=== PATIENT | female | born 1960 | race Caucasian/White ===

== ENCOUNTER 2018-02-03 21:45 | Emergency (ER) | payer MEDICAID, SELFPAY ==
[2018-02-03 21:46] VITALS: BP 133/96; BP 146/90; PULSE 85; PULSE 87; RESP 17; RESP 18; TEMP 36.4; O2SAT 96; BMI 32.2
--- NOTE | 2018-02-03 21:49 | EKG12_ITS ---
Test Reason : CP Blood Pressure : / mmHG Vent. Rate : 087 BPM Atrial Rate : 087 BPM P-R Int : 178 ms QRS Dur : 098 ms QT Int : 406 ms P-R-T Axes : 013 021 031 degrees QTc Int : 488 ms Normal sinus rhythm Prolonged QT Abnormal ECG Confirmed by ESPERANZA RUBIO ([id number]), food expeditor FELIPE TURK ([id number]) on 02/08/2018 4:07:48 PM Referred By: EVERETT
[2018-02-03 22:47] LABS: Bacteria 0 SEEN /hpf (None Seen); Mucous, Urine 0 SEEN /hpf (<or=2+)
--- NOTE | 2018-02-03 22:48 | ED.DCSUM_ITS ---
- ER Visit Summary Date of Service: 02/03/18 Chief Complaint: Chest pain, headache, abdominal pain, back pain History of Present Illness: The patient is a 57 F who has had multiple symptoms including all the above. Symptoms started yesterday. She describes a headache that is diffuse and throbbing. She has pain in her abdomen that radiates up into her chest. She denies feeling short of breath. She then developed nausea and diarrhea today. She has been trying Advil and Imodium without relief. She has never had any abdominal surgeries in the past. She has a history of HIV and has been compliant with her antiviral medication. Physical Examination: Vital signs reviewed. HEENT exam unremarkable. Heart is regular rate and rhythm without murmurs. Lungs are clear to auscultation. Abdomen is soft with upper abdomen tenderness to palpation. extremities reveal no edema. Skin exam normal. Neurologic exam normal. Test Results: Laboratory studies show potassium 3.3, alkaline phosphatase of 118 , ALT 99 and AST 76. Urinalysis negative. Emergency Department Course and Treatment: Patient was treated with normal saline and Zofran. She was also given Bentyl. Upon reevaluation she feels better. I feel that her elevation of liver enzymes are likely due to her antiretrovirals. She states that they have been mildly elevated in the past as well. She feels much better. I will give her Bentyl and Zofran that she can take at home. This is likely a viral illness. I have very low suspicion for gallbladder pathology. She will need to follow-up with her PCP Treatment Plan: [] Disposition: Discharge Impression: Acute viral illness This note was generated with [employer] dictation software. It may contain incorrect words, spelling, and punctuation that were not noted in review of the chart prior to signing ED Disposition - Plan for ED Patient: Chief Complaint: Chest Pain Referrals: Venkata Rudolph MD [Primary Care Provider] -
[2018-02-03 22:49] LABS: Color, Urine Yellow (Yellow); Glucose, Dipstick Normal (Normal); Ketone-Dipstick Negative (Negative); Leukocyte Esterase-Dipstick 500 /ul (Negative); Nitrite-Dipstick Negative (Negative); Occult Blood-Urine 50 /ul (Negative); Protein-Dipstick 30 mg/dl (Negative); Specific Gravity, Urine 1.025 (1.002-1.030); Urine Bilirubin Dipstick Negative (Negative); Urine Clarity Cloudy (Clear); Urine Urobilinogen Normal (Normal)
[2018-02-03 22:52] LABS: Absolute Lymphocyte Count 1.26 X10^3/ul (0.83-4.51); Absolute Neutrophil Count 4.9 X10^3/uL (2.0-7.7); Basophil# 0.01 X10^3/uL; Basophil% 0.1 % (0-1); Eosinophil# 0.13 X10^3/uL; Eosinophils% 1.9 % (0-5); Hematocrit 44.5 % (37-47); Lymphocyte # 1.26 X10^3/ul (4.0); Lymphocyte % 18.6 % (19-41); Mean Corp Hgb Conc 33.7 g/gl (32-36); Mean Corpuscular Hgb 29.9 pg (27.0-32.0); Mean Corpuscular Volume 88.6 fL (81-99); Mean Platelet Vol. 10.6 fl (6.2-12.0); Monocyte# 0.42 X10^3/uL; Monocyte% 6.2 % (0-10); Neutrophil # 4.93 X10^3/uL (2.7-7.7); Neutrophil % 73.1 % (47-70); POSITIVE COUNT NO; POSITIVE DIFFERENTIAL NO; POSITIVE MORPHOLOGY NO; Platelet Count 223 K/mm3 (150-450); RBC Distribution Width CV 13.5 % (11.6-14.6); RBC Distribution Width SD 43.3 fl (35.1-43.9); Red Blood Count 5.02 M/mm3 (4.2-5.4); White Blood Count 6.8 K/mm3 (4.4-11.0)
[2018-02-03] MEDS: 0.9% Normal Saline 1,000 ML 1000 ML IV (22:52)
[2018-02-03] MEDS: Ondansetron 4 MG/2 ML Vial IV (22:53)
[2018-02-03] MEDS: Dicyclomine 20 MG/2 ML Vial IM (22:53)
[2018-02-03 23:00] LABS: Amorphous Sediment 3+; Red Blood Cells-Urine 0-5 SEEN /hpf (0-5); Squamous Epithelial Cells - UA 0-5 SEEN /hpf (5-10); White Blood Cells 0-5 SEEN /hpf (0-5)
[2018-02-03 23:05] LABS: ALB/GLOB Ratio 0.8 RATIO (0.9-2.4); AST(SGOT) 76 U/L (15-37); Alanine Aminotransfer ALT/SGPT 99 U/L (13-56); Albumin, Serum 3.6 g/dL (3.2-5.0); Alkaline Phosphatase 118 U/L (45-117); Anion Gap 7 (5-15); BUN 18 mg/dL (7-18); BUN/Creat Ratio 18.2 RATIO (10-20); Calcium,Total 8.7 mg/dL (8.5-10.1); Chloride 103 mmol/L (98-107); Creatinine, Serum 0.99 mg/dL (0.55-1.02); EST Glomerular Filtration Rate 62 mL/min (>60); Est Glom Filt Rate - Afr Amer 75 mL/min (>60); Estimated Creatinine Clearance 64.77 ml/min; Globulin 4.7 g/dL (2.2-4.2); Glucose 119 mg/dL (74-106); Lipase 98 U/L (73-393); Potassium 3.3 mmol/L (3.5-5.1); Protein, Total 8.3 g/dL (6.4-8.2); Sodium Level 136 mmol/L (136-145)
[2018-02-03 23:18] VITALS: PULSE 80; RESP 16; O2SAT 96
--- NOTE | 2018-02-03 23:21 | ED.DEP ---
ED Disposition - Plan for ED Patient: Disposition: Home or Assisted Living Chief Complaint: Chest Pain Instructions: ED Viral Syndrome Prescriptions: Ondansetron [Zofran Odt] 4 mg PO Q8H PRN PRN #10 tab PRN Reason: Nausea Dicyclomine HCl [Bentyl] 20 mg PO TIDAC #20 cap Referrals: Venkata Rudolph MD [Primary Care Provider] -
[2018-02-03 23:30] VITALS: PULSE 77; RESP 14; O2SAT 95
== END 2018-02-03 23:31 | disposition home or self-care (01) ==
PROVIDERS: Emergency Provider Emergency Medicine; Family Provider Family Medicine; PCP Family Medicine
DX: B34.9 Viral infection, unspecified (principal); I10 Essential (primary) hypertension; Z72.0 Tobacco use
CPT/HCPCS: 80053; 81001; 83690; 85025; 93005; 99285; J7030; A4216; J2405

== ENCOUNTER → 2018-03-22 06:55 | Outpatient (CLI) | payer MEDICAID, SELFPAY ==
[2018-03-22 07:51] LABS: Hematocrit 40.1 % (37-47); Hemoglobin 13.3 g/dl (12.0-15.0); Mean Corp Hgb Conc 33.2 g/gl (32-36); Mean Corpuscular Hgb 29.7 pg (27.0-32.0); Mean Corpuscular Volume 89.5 fL (81-99); Mean Platelet Vol. 10.3 fl (6.2-12.0); Platelet Count 252 K/mm3 (150-450); RBC Distribution Width CV 13.3 % (11.6-14.6); RBC Distribution Width SD 42.9 fl (35.1-43.9); Red Blood Count 4.48 M/mm3 (4.2-5.4); White Blood Count 6.6 K/mm3 (4.4-11.0)
[2018-03-22 07:54] LABS: Scan Indicated on CBC? Y/N NO
[2018-03-22 08:30] LABS: AST(SGOT) 34 U/L (15-37); Alanine Aminotransfer ALT/SGPT 52 U/L (13-56); Albumin, Serum 3.1 g/dL (3.2-5.0); Alkaline Phosphatase 107 U/L (45-117); Anion Gap 7 (5-15); BUN 16 mg/dL (7-18); BUN/Creat Ratio 19.1 RATIO (10-20); Bilirubin, Direct 0.11 mg/dL (0.00-0.30); Calcium,Total 8.3 mg/dL (8.5-10.1); Chloride 107 mmol/L (98-107); Cholesterol 142 mg/dL (200); Creatinine, Serum 0.84 mg/dL (0.55-1.02); EST Glomerular Filtration Rate 75 mL/min (>60); Est Glom Filt Rate - Afr Amer 91 mL/min (>60); Glucose 110 mg/dL (74-106); High Density Lipoprotein 42 mg/dL; Potassium 3.5 mmol/L (3.5-5.1); Protein, Total 8.1 g/dL (6.4-8.2); Sodium Level 139 mmol/L (136-145); Triglycerides 106 mg/dL; Very Low Density Lipoprotein 21 mg/dL (5-40)
[2018-03-28 20:08] LABS: Absolute CD4 Helper 796 /uL (359-1519); Basophils (Absolute) 0 x10E3/uL (0.0-0.2); Eosinophils 2 % (Not Estab.); Eosinophils (Absolute) 0.1 x10E3/uL (0.0-0.4); Hematocrit 41.3 % (34.0-46.6); Hemoglobin 13.3 g/dL (11.1-15.9); Lymphs 28 % (Not Estab.); Lymphs (Absolute) 1.8 x10E3/uL (0.7-3.1); MCH 29.8 pg (26.6-33.0); MCHC 32.2 g/dL (31.5-35.7); MCV 92 fL (79-97); Monocytes 8 % (Not Estab.); Monocytes (Absolute) 0.5 x10E3/uL (0.1-0.9); Neutrophils 62 % (Not Estab.); Percent % CD4 Pos. Lymph. 44.2 % (30.8-58.5); Platelets 263 x10E3/uL (150-379); RBC Count 4.47 x10E6/uL (3.77-5.28); RDW 13.8 % (12.3-15.4); WBC Count 6.4 x10E3/uL (3.4-10.8)
[2018-03-29 14:51] LABS: HIV-1 RNA by PCR, Quant. < 20 copies/mL (.)
[2018-03-30 20:08] LABS: QNTFERON TB Ag Minus Nil Value < 0 IU/mL (.); QNTFERON TB Ag Value 0.07 IU/mL (.); QNTFERON TB Mitogen Value > 10.00 IU/mL (.); QNTFERON TB Nil Value 0.08 IU/mL (.)
[2018-03-31 13:14] LABS: QNTIFERON TB Gold Negative (Negative)
== END ==
PROVIDERS: Family Provider Family Medicine; PCP Family Medicine; Visit Provider Internal Medicine Infectious Disease
DX: B20 Human immunodeficiency virus [HIV] disease (principal)
CPT/HCPCS: 36415; 80048; 80061; 80076; 85027; 86361; 86480; 87536

== ENCOUNTER 2018-07-27 08:34 | Emergency (ER) | payer MEDICAID, SELFPAY ==
[2018-07-27 08:35] VITALS: BP 134/83; PULSE 87; RESP 18; TEMP 36.9; O2SAT 99; BMI 38.0
--- NOTE | 2018-07-27 08:48 | ED.VISSUMM ---
- ER Visit Summary Date of Service: 07/27/18 Chief Complaint: Back pain and abdominal cramping History of Present Illness: The patient is a 58 F past medical history of hypertension and HIV positive. Patient was treated in urgent care today and sent to the ER. She states on Wednesday she started having right paravertebral mid to lower back pain. She denies any dysuria. She denies any fever. Yesterday and today she developed some epigastric abdominal cramping with diarrhea. She denies any melena. Mild nausea no vomiting. She is never had any abdominal surgeries. Physical Examination: Well-appearing middle-age female. Vital signs are stable afebrile. HEENT exam unremarkable. Neck nontender. Lungs there to auscultation bilaterally. Heart regular rate and rhythm no murmur. Abdomen is soft. Mild epigastric tenderness. No rebound. No guarding. No distention. No rigidity. No Soriano sign. No McBurney's point or right lower quadrant tenderness. No signs of trauma. Positive bowel sounds. She is moving all 4 extremities. They are neurovascularly intact. 5 out of 5 motor strength. Dorsi and plantar flexion intact. Back she has some right paravertebral soft tissue tenderness consistent with muscle spasm. There is no specific CVA tenderness. The left side is unremarkable. Neurologically she is awake and alert without any focal motor deficits. Test Results: CBC shows a white count of 11.3. Normal H&H. Electrolytes unremarkable. Normal creatinine and gap. Liver and lipase are unremarkable. UA is unremarkable. No signs of infection or kidney stone. Emergency Department Course and Treatment: Patient will be treated with IV Toradol. She is driving herself home so it to be careful what we give her medication chase. Clinically the back exam is consistent with paravertebral muscle spasm. Repeat exam patient is doing well at 0943 AM. Abdomen is benign. Treatment Plan: Patient appears to have paravertebral muscle spasm. She replaced on several days of p.o. Valium. Motrin for pain and inflammation. The diarrhea is most likely from a viral illness. Disposition: Discharge Impression: Musculoskeletal back pain secondary to muscle spasm Diarrhea secondary to viral illness This note was generated with raksulation software. It may contain incorrect words, spelling, and punctuation that were not noted in review of the chart prior to signing ED Disposition - Plan for ED Patient: Chief Complaint: Flank Pain Referrals: Venkata Rudolph MD [Primary Care Provider] -
--- NOTE | 2018-07-27 08:51 | ED.DCSUM_ITS ---
- ER Visit Summary Date of Service: 07/27/18 Chief Complaint: Back pain and abdominal cramping History of Present Illness: The patient is a 58 F past medical history of hypertension and HIV positive. Patient was treated in urgent care today and sent to the ER. She states on Wednesday she started having right paravertebral mid to lower back pain. She denies any dysuria. She denies any fever. Yesterday and today she developed some epigastric abdominal cramping with diarrhea. She denies any melena. Mild nausea no vomiting. She is never had any abdominal surgeries. Physical Examination: Well-appearing middle-age female. Vital signs are stable afebrile. HEENT exam unremarkable. Neck nontender. Lungs there to auscultation bilaterally. Heart regular rate and rhythm no murmur. Abdomen is soft. Mild epigastric tenderness. No rebound. No guarding. No distention. No rigidity. No Soriano sign. No McBurney's point or right lower quadrant tenderness. No signs of trauma. Positive bowel sounds. She is moving all 4 extremities. They are neurovascularly intact. 5 out of 5 motor strength. Dorsi and plantar flexion intact. Back she has some right paravertebral soft tissue tenderness consistent with muscle spasm. There is no specific CVA tenderness. The left side is unremarkable. Neurologically she is awake and alert without any focal motor deficits. Test Results: CBC shows a white count of 11.3. Normal H&H. Electrolytes unremarkable. Normal creatinine and gap. Liver and lipase are unremarkable. UA is unremarkable. No signs of infection or kidney stone. Emergency Department Course and Treatment: Patient will be treated with IV Toradol. She is driving herself home so it to be careful what we give her medication chase. Clinically the back exam is consistent with paravertebral mus julio spasm. Repeat exam patient is doing well at 0943 AM. Abdomen is benign. Treatment Plan: Patient appears to have paravertebral muscle spasm. She replaced on several days of p.o. Valium. Motrin for pain and inflammation. The diarrhea is most likely from a viral illness. Disposition: Discharge Impression: Musculoskeletal back pain secondary to muscle spasm Diarrhea secondary to viral illness This note was generated with [employer] dictation software. It may contain incorrect words, spelling, and punctuation that were not noted in review of the chart prior to signing ED Disposition - Plan for ED Patient: Chief Complaint: Flank Pain Referrals: Venkata Ruodlph MD [Primary Care Provider] -
[2018-07-27] MEDS: Ketorolac 30 MG/ML Syringe IV (08:54)
[2018-07-27 08:59] LABS: Absolute Neutrophil Count 9.3 X10^3/uL (2.0-7.7); Basophil# 0.04 X10^3/uL; Basophil% 0.4 % (0-1); Eosinophil# 0.17 X10^3/uL; Eosinophils% 1.5 % (0-5); Hematocrit 45.4 % (37-47); Hemoglobin 15.2 g/dl (12.0-15.0); Lymphocyte % 10.6 % (19-41); Mean Corp Hgb Conc 33.5 g/gl (32-36); Mean Corpuscular Hgb 30.2 pg (27.0-32.0); Mean Corpuscular Volume 90.1 fL (81-99); Mean Platelet Vol. 10.5 fl (6.2-12.0); Monocyte# 0.61 X10^3/uL; Monocyte% 5.4 % (0-10); Neutrophil # 9.25 X10^3/uL (2.7-7.7); POSITIVE COUNT NO; POSITIVE DIFFERENTIAL NO; POSITIVE MORPHOLOGY NO; Platelet Count 214 K/mm3 (150-450); RBC Distribution Width SD 42.5 fl (35.1-43.9); Red Blood Count 5.04 M/mm3 (4.2-5.4); White Blood Count 11.3 K/mm3 (4.4-11.0)
[2018-07-27 09:15] LABS: AST(SGOT) 32 U/L (15-37); Alanine Aminotransfer ALT/SGPT 62 U/L (13-56); Albumin, Serum 3.5 g/dL (3.2-5.0); Alkaline Phosphatase 111 U/L (45-117); Anion Gap 7 (5-15); BUN 24 mg/dL (7-18); BUN/Creat Ratio 25.3 RATIO (10-20); Bilirubin, Direct 0.19 mg/dL (0.00-0.30); Calcium,Total 8.5 mg/dL (8.5-10.1); Chloride 106 mmol/L (98-107); Creatinine, Serum 0.95 mg/dL (0.55-1.02); EST Glomerular Filtration Rate 65 mL/min (>60); Est Glom Filt Rate - Afr Amer 78 mL/min (>60); Globulin 5.2 g/dL (2.2-4.2); Glucose 126 mg/dL (74-106); Lipase 114 U/L (73-393); Potassium 3.9 mmol/L (3.5-5.1); Protein, Total 8.7 g/dL (6.4-8.2); Sodium Level 138 mmol/L (136-145)
[2018-07-27 09:17] LABS: Mucous, Urine 0 SEEN /hpf (<or=2+); White Blood Cells 0 SEEN /hpf (0-5)
[2018-07-27 09:18] LABS: Color, Urine Yellow (Yellow); Glucose, Dipstick Normal (Normal); Ketone-Dipstick Negative (Negative); Leukocyte Esterase-Dipstick Negative /ul (Negative); Nitrite-Dipstick Negative (Negative); Occult Blood-Urine 10 /ul (Negative); Protein-Dipstick 15 mg/dl (Negative); Specific Gravity, Urine 1.025 (1.002-1.030); Urine Bilirubin Dipstick Negative (Negative); Urine Clarity Sl. Cloudy (Clear); Urine Urobilinogen Normal (Normal)
[2018-07-27 09:26] LABS: Bacteria 1+ /hpf (None Seen); Red Blood Cells-Urine 0-5 SEEN /hpf (0-5); Squamous Epithelial Cells - UA 0-5 SEEN /hpf (5-10)
--- NOTE | 2018-07-27 09:50 | ED.DEP ---
ED Disposition - Plan for ED Patient: Disposition: Home or Assisted Living Chief Complaint: Flank Pain Instructions: ED Spasm Back No Trauma Prescriptions: Diazepam [Valium] 10 mg PO BID PRN PRN #10 tab PRN Reason: back spasms Referrals: Venkata Rudolph MD [Primary Care Provider] - 3-5 Days if not improving Additional Instructions: Motrin for pain. Valium for muscle spasms. Do not drive while using the Valium. Hot showers, warm bath and massage. Follow-up with if not improving.
[2018-07-27 10:01] VITALS: PULSE 81; RESP 17; O2SAT 94
== END 2018-07-27 10:04 | disposition home or self-care (01) ==
PROVIDERS: Emergency Provider Emergency Medicine; Family Provider Family Medicine; PCP Family Medicine
DX: M54.5 Low back pain (principal); M62.830 Muscle spasm of back; R19.7 Diarrhea, unspecified; B34.9 Viral infection, unspecified; R10.13 Epigastric pain; I10 Essential (primary) hypertension; B20 Human immunodeficiency virus [HIV] disease; Z79.899 Other long term (current) drug therapy
CPT/HCPCS: 80048; 80076; 81001; 83690; 85025; 96374; 99284; A4216

== ENCOUNTER → 2018-09-19 12:07 | Outpatient (CLI) | payer MEDICAID, SELFPAY ==
[2018-09-19 13:13] LABS: Hematocrit 43.6 % (37-47); Hemoglobin 14.6 g/dl (12.0-15.0); Mean Corp Hgb Conc 33.5 g/gl (32-36); Mean Corpuscular Hgb 30.1 pg (27.0-32.0); Mean Corpuscular Volume 89.9 fL (81-99); Platelet Count 215 K/mm3 (150-450); RBC Distribution Width CV 13.4 % (11.6-14.6); RBC Distribution Width SD 43.4 fl (35.1-43.9); Red Blood Count 4.85 M/mm3 (4.2-5.4); White Blood Count 6.5 K/mm3 (4.4-11.0)
[2018-09-19 13:15] LABS: Scan Indicated on CBC? Y/N NO
[2018-09-19 13:26] LABS: AST(SGOT) 84 U/L (15-37); Alanine Aminotransfer ALT/SGPT 93 U/L (13-56); Albumin, Serum 3.7 g/dL (3.2-5.0); Alkaline Phosphatase 104 U/L (45-117); Anion Gap 7 (5-15); BUN 21 mg/dL (7-18); BUN/Creat Ratio 25.8 RATIO (10-20); Bilirubin, Direct 0.16 mg/dL (0.00-0.30); Calcium,Total 9.3 mg/dL (8.5-10.1); Chloride 108 mmol/L (98-107); Creatinine, Serum 0.81 mg/dL (0.55-1.02); EST Glomerular Filtration Rate 77 mL/min (>60); Est Glom Filt Rate - Afr Amer 93 mL/min (>60); Globulin 4.8 g/dL (2.2-4.2); Glucose 92 mg/dL (74-106); Potassium 3.8 mmol/L (3.5-5.1); Protein, Total 8.5 g/dL (6.4-8.2); Sodium Level 140 mmol/L (136-145)
[2018-09-20 14:07] LABS: Absolute CD4 Helper 635 /uL (359-1519); Basophils (Absolute) 0 x10E3/uL (0.0-0.2); Eosinophils 3 % (Not Estab.); Eosinophils (Absolute) 0.2 x10E3/uL (0.0-0.4); Hematocrit 40.9 % (34.0-46.6); Hemoglobin 14.7 g/dL (11.1-15.9); Immature Granulocytes 0 % (Not Estab.); Lymphs 27 % (Not Estab.); Lymphs (Absolute) 1.8 x10E3/uL (0.7-3.1); MCH 29.9 pg (26.6-33.0); MCHC 35.9 g/dL (31.5-35.7); MCV 83 fL (79-97); Monocytes 8 % (Not Estab.); Monocytes (Absolute) 0.6 x10E3/uL (0.1-0.9); Neutrophils 61 % (Not Estab.); Neutrophils (Absolute) 4.1 x10E3/uL (1.4-7.0); Percent % CD4 Pos. Lymph. 35.3 % (30.8-58.5); Platelets 233 x10E3/uL (150-379); RBC Count 4.91 x10E6/uL (3.77-5.28); RDW 13.7 % (12.3-15.4); WBC Count 6.6 x10E3/uL (3.4-10.8)
[2018-09-21 09:24] LABS: Immature Granulocytes Absolute 0 x10E3/uL (0.0-0.1)
[2018-09-21 13:18] LABS: HIV-1 RNA by PCR, Quant. 20 copies/mL (.); LOG10 HIV-1 RNA 1.301 (.)
== END ==
PROVIDERS: Family Provider Family Medicine; PCP Family Medicine; Referring Provider Internal Medicine Infectious Disease; Visit Provider Internal Medicine Infectious Disease
DX: B20 Human immunodeficiency virus [HIV] disease (principal)
CPT/HCPCS: 36415; 80048; 80076; 85027; 86361; 87536

== ENCOUNTER 2018-10-12 13:04 | Emergency (ER) | payer MEDICAID, SELFPAY ==
[2018-10-12 13:05] VITALS: BP 136/84; BP 161/107; PULSE 86; RESP 18; TEMP 36.3; O2SAT 96; BMI 38.5
--- NOTE | 2018-10-12 13:33 | RAD_ITS ---
STUDY: X-RAY - UNILATERAL RIBS ( RIGHT ) WITH CHEST REASON FOR EXAM: Female, 58 years old. Anterior right rib pain following a fall. TECHNIQUE - RIBS: 4 view(s) of the ribs. TECHNIQUE - CHEST: COMPARISON: None. FINDINGS - RIBS: Normal visualized ribs without a demonstrated fracture. FINDINGS - CHEST: The lungs are clear and expanded. Scattered calcified granulomas. There is no demonstrated pleural abnormality. Normal size heart. Normal mediastinum and erendira. Normal visualized pulmonary arteries. There is atherosclerotic tortuosity of the aortic arch and descending thoracic aorta. There are diffuse degenerative changes of the visualized thoracic spine. Normal visualized ribs, clavicles, and shoulders. There is no demonstrated abnormality of the visualized soft tissue structures of the upper abdomen. RAD/Ribs Uni Min 3V w/PA Chest IMPRESSION: RIBS: Normal x-ray examination of the ribs. CHEST: Normal x-ray examination of the chest. Electronically Signed: Rodney Luna MD at 14:22 EST Tel [phone], Service support ,
--- NOTE | 2018-10-12 15:31 | ED.VISSUMM ---
- ER Visit Summary Date of Service: 10/12/18 Chief Complaint: Fall History of Present Illness: The patient is a 58 F who presents after a fall 5 days ago. Patient states she tripped and fell forward and landed on concrete. Patient thinks her right arm was under her when she fell. Patient complains of pain over the right lower ribs. Patient states the pain is worse with movement and deep breathing. Patient denies any head injury or loss of consciousness. Patient denies any paresthesias or weakness. Physical Examination: Vital signs are stable. Patient is afebrile. Patient is in no acute distress. Heart was regular rate and rhythm. Lungs are clear and equal bilaterally. There is adequate respiratory effort. There is tenderness over the right lower chest wall. There is also some mild right upper quadrant tenderness. There is no rebound or guarding noted. Bowel sounds are normal. Abdomen is soft. Cranial nerves II through XII are intact. There are no focal motor or sensory deficits noted. The remaining physical exam is within normal limits. Test Results: X-rays of the right ribs were obtained. There is no acute fracture. There is no pneumothorax. Emergency Department Course and Treatment: Patient was instructed to take Tylenol or ibuprofen as needed for pain. Patient was instructed to use ice packs to the area. Patient was instructed to follow-up with her primary care physician in 5-7 days. Patient understood and was agreeable with the plan. All questions were answered. Disposition: Discharge home Impression: Chest wall contusion This note was generated with [employer] dictation software. It may contain incorrect words, spelling, and punctuation that were not noted in review of the chart prior to signing ED Disposition - Plan for ED Patient: Disposition: Home or Assisted Living Chief Complaint: Fall Diagnosis: Contusion, chest wall Instructions: ED Contusion Chest Wall, ED Mechanical Fall Referrals: Venkata Rudolph MD [Primary Care Provider] -
== END 2018-10-12 15:37 | disposition home or self-care (01) ==
PROVIDERS: Emergency Provider Emergency Medicine; Family Provider Family Medicine; PCP Family Medicine
DX: S20.211A Contusion of right front wall of thorax, initial encounter (principal); W18.09XA Striking against other object with subsequent fall, initial encounter; Y93.9 Activity, unspecified; Y92.89 Other specified places as the place of occurrence of the external cause; Y99.9 Unspecified external cause status; I10 Essential (primary) hypertension; B20 Human immunodeficiency virus [HIV] disease
CPT/HCPCS: 71101; 99282

== ENCOUNTER → 2018-10-24 09:59 | Outpatient (CLI) | payer MEDICAID, SELFPAY ==
[2018-10-12 13:05] VITALS: BMI 38.5
--- NOTE | 2018-10-24 10:05 | US_ITS ---
STUDY: ABDOMINAL ULTRASOUND - RIGHT UPPER QUADRANT REASON FOR VISIT: Female, 58 years old. Liver disease. Abnormal laboratories. TECHNIQUE: Ultrasound evaluation of the right upper quadrant was performed with real-time and static hubbard-scale imaging. TECHNICAL QUALITY: Adequate. COMPARISON: CT of the abdomen and pelvis, July 04, 2017. FINDINGS: Liver: The liver measures 18 cm. There is increased echogenicity consistent with fatty infiltration. The bile ducts are within normal limits. There is hepatic color flow. The direction of portal flow is hepatopetal. There is no demonstrated mass lesion. Gallbladder: Normal distended gallbladder. The gallbladder wall measures 2.8 mm. There is a negative sonographic Soriano's sign. There is no pericholecystic fluid. There are no gallstones. Common Bile Duct (C.B.D.): The common bile duct measures 2.7 mm. Pancreas: Normal size of the head, body and tail of the pancreas. There is normal echogenicity of the pancreas. There is no demonstrated pancreatic mass or cyst. Right Kidney: Normal size of the right kidney. The right kidney measures 11.0 cm. Normal renal cortex. The right cortex measures 1.4 cm. There is no demonstrated renal mass or cyst. There is no right hydronephrosis. US/Liver IMPRESSION: Enlarged fatty infiltrated liver without focal mass. Electronically Signed: Cheikh Bettencourt DO at 23:43 EST Tel [phone], Service support ,
== END ==
PROVIDERS: Family Provider Family Medicine; PCP Family Medicine
DX: K76.9 Liver disease, unspecified (principal)
CPT/HCPCS: 76705

== ENCOUNTER → 2019-03-08 14:23 | Outpatient (CLI) | payer MEDICAID, SELFPAY ==
--- NOTE | 2019-03-08 14:30 | VDLE_ITS ---
Reason For Study: Edema RIGHT GSV is normal. CFV is compressible, spontaneous, phasic, competent and demonstrates normal augmentation. FV is compressible, spontaneous, phasic, competent and demonstrates normal augmentation. POP V is compressible, spontaneous, phasic, competent and demonstrates normal augmentation. T/P Trunk is compressible. PTV is compressible. RT PerV is compressible. Procedure Exam performed in department. A preliminary report was called and/or faxed to Dr. Rudolph. Interpretation Summary There is no evidence of right lower extremity deep vein thrombosis. Right greater saphenous vein appears patent and compressible segmentally. Ordering Physician: Venkata Rudolph Referring Physician: Venkata Rudolph Performed By: Carmela Hwang, ANTOINETTECS, RVT
== END ==
PROVIDERS: Family Provider Family Medicine; PCP Family Medicine; Referring Provider Family Medicine; Visit Provider Family Medicine
DX: R60.0 Localized edema (principal)
CPT/HCPCS: 93971

== ENCOUNTER → 2019-03-22 10:23 | Outpatient (CLI) | payer MEDICAID, SELFPAY ==
[2019-03-22 11:43] LABS: Absolute Lymphocyte Count 1.52 X10^3/ul (0.83-4.51); Absolute Neutrophil Count 3.1 X10^3/uL (2.0-7.7); Basophil# 0.03 X10^3/uL; Basophil% 0.6 % (0-1); Eosinophil# 0.16 X10^3/uL; Eosinophils% 3.1 % (0-5); Hematocrit 42.8 % (37-47); Hemoglobin 14.4 g/dl (12.0-15.0); Lymphocyte # 1.52 X10^3/ul (4.0); Lymphocyte % 29.1 % (19-41); Mean Corp Hgb Conc 33.6 g/gl (32-36); Mean Corpuscular Hgb 29.6 pg (27.0-32.0); Mean Corpuscular Volume 88.1 fL (81-99); Mean Platelet Vol. 11.3 fl (6.2-12.0); Monocyte# 0.39 X10^3/uL; Monocyte% 7.5 % (0-10); Neutrophil # 3.12 X10^3/uL (2.7-7.7); Neutrophil % 59.5 % (47-70); POSITIVE COUNT NO; POSITIVE DIFFERENTIAL NO; POSITIVE MORPHOLOGY NO; Platelet Count 191 K/mm3 (150-450); RBC Distribution Width CV 13.2 % (11.6-14.6); RBC Distribution Width SD 42.3 fl (35.1-43.9); Red Blood Count 4.86 M/mm3 (4.2-5.4); White Blood Count 5.2 K/mm3 (4.4-11.0)
[2019-03-22 12:14] LABS: ALB/GLOB Ratio 0.8 RATIO (0.9-2.4); AST(SGOT) 69 U/L (15-37); Alanine Aminotransfer ALT/SGPT 114 U/L (13-56); Albumin, Serum 3.4 g/dL (3.2-5.0); Alkaline Phosphatase 100 U/L (45-117); Anion Gap 5 (5-15); BUN 19 mg/dL (7-18); BUN/Creat Ratio 24.7 RATIO (10-20); Calcium,Total 8.5 mg/dL (8.5-10.1); Chloride 107 mmol/L (98-107); Cholesterol 200 mg/dL (200); Creatinine, Serum 0.77 mg/dL (0.55-1.02); EST Glomerular Filtration Rate 82 mL/min (>60); Est Glom Filt Rate - Afr Amer 100 mL/min (>60); Globulin 4.5 g/dL (2.2-4.2); Glucose 121 mg/dL (74-106); High Density Lipoprotein 52 mg/dL; Potassium 3.7 mmol/L (3.5-5.1); Protein, Total 7.9 g/dL (6.4-8.2); Sodium Level 137 mmol/L (136-145); Thyroid Stim Hormone (TSH) 1.12 uIU/mL (0.358-3.74); Triglycerides 163 mg/dL; Very Low Density Lipoprotein 33 mg/dL (5-40)
[2019-03-23 14:06] LABS: Absolute CD4 Helper 578 /uL (359-1519); Basophils (Absolute) 0 x10E3/uL (0.0-0.2); Eosinophils 3 % (Not Estab.); Eosinophils (Absolute) 0.2 x10E3/uL (0.0-0.4); Hematocrit 40.8 % (34.0-46.6); Hemoglobin 14.3 g/dL (11.1-15.9); Immature Granulocytes 0 % (Not Estab.); Lymphs 30 % (Not Estab.); Lymphs (Absolute) 1.7 x10E3/uL (0.7-3.1); MCH 30.2 pg (26.6-33.0); MCV 86 fL (79-97); Monocytes 8 % (Not Estab.); Monocytes (Absolute) 0.4 x10E3/uL (0.1-0.9); Neutrophils 58 % (Not Estab.); Neutrophils (Absolute) 3.3 x10E3/uL (1.4-7.0); Platelets 203 x10E3/uL (150-450); RBC Count 4.74 x10E6/uL (3.77-5.28); RDW 12.7 % (12.3-15.4); WBC Count 5.6 x10E3/uL (3.4-10.8)
[2019-03-24 11:45] LABS: Immature Granulocytes Absolute 0 x10E3/uL (0.0-0.1)
[2019-03-25 15:27] LABS: HIV-1 RNA by PCR, Quant. < 20 copies/mL (.)
== END ==
PROVIDERS: Family Provider Family Medicine; PCP Family Medicine
DX: B20 Human immunodeficiency virus [HIV] disease (principal); K76.0 Fatty (change of) liver, not elsewhere classified; K76.9 Liver disease, unspecified
CPT/HCPCS: 80053; 80061; 84443; 85025; 86361; 87536

== ENCOUNTER → 2019-03-29 | Outpatient (CLI) | payer MEDICAID, SELFPAY ==
[2019-03-29 12:33] LABS: Erythrocyte Sedimentation Rate 27 mm/hr (0-30)
[2019-03-30 14:06] LABS: SJOGREN'S Anti-SS-A test < 0.2 AI (0.0-0.9); SJOGREN'S Anti-SS-B test < 0.2 AI (0.0-0.9)
[2019-03-30 15:08] LABS: ANTINUCLEAR ANTIBODIES DIRECT Negative (Negative)
== END | disposition home or self-care (01) ==
PROVIDERS: Family Provider Family Medicine; PCP Family Medicine
DX: R53.82 Chronic fatigue, unspecified (principal); M79.10 Myalgia, unspecified site; R68.2 Dry mouth, unspecified; K76.9 Liver disease, unspecified
CPT/HCPCS: 36415; 85652; 86038; 86140; 86235

== ENCOUNTER → 2020-04-05 13:08 | Outpatient (CLI) | payer MEDICAID, SELFPAY ==
[2020-04-05 13:37] LABS: Absolute Lymphocyte Count 1.61 X10^3/uL (0.83-4.51); Absolute Neutrophil Count 3.9 X10^3/uL (2.0-7.7); Basophil# 0.06 X10^3/uL; Basophil% 0.9 % (0-1); Eosinophil# 0.19 X10^3/uL; Hematocrit 42.1 % (37-47); Hemoglobin 14.2 g/dL (12.0-15.0); Lymphocyte # 1.61 X10^3/ul (4.0); Lymphocyte % 25.2 % (19-41); Mean Corp Hgb Conc 33.7 g/dL (32-36); Mean Corpuscular Hgb 30.4 pg (27.0-32.0); Mean Corpuscular Volume 90.1 fL (81-99); Mean Platelet Vol. 10.5 fl (6.2-12.0); Monocyte# 0.59 X10^3/uL; Monocyte% 9.2 % (0-10); NRBC Flagged by Analyzer 0 % (0-5); Neutrophil # 3.94 X10^3/uL (2.7-7.7); Neutrophil % 61.5 % (47-70); Platelet Count 238 K/mm3 (150-450); RBC Distribution Width CV 13.3 % (11.6-14.6); RBC Distribution Width SD 43.1 fl (35.1-43.9); Red Blood Count 4.67 M/mm3 (4.2-5.4); White Blood Count 6.4 K/mm3 (4.4-11.0)
[2020-04-05 14:07] LABS: ALB/GLOB Ratio 0.8 RATIO (0.9-2.4); AST(SGOT) 71 U/L (15-37); Alanine Aminotransfer ALT/SGPT 121 U/L (13-56); Albumin, Serum 3.7 g/dL (3.2-5.0); Alkaline Phosphatase 111 U/L (45-117); Anion Gap 5 (5-15); BUN 18 mg/dL (7-18); BUN/Creat Ratio 22.8 RATIO (10-20); Calcium,Total 9.1 mg/dL (8.5-10.1); Chloride 105 mmol/L (98-107); Cholesterol 200 mg/dL (200); Creatinine, Serum 0.79 mg/dL (0.55-1.02); EST Glomerular Filtration Rate 80 mL/min (>60); Est Glom Filt Rate - Afr Amer 97 mL/min (>60); Globulin 4.9 g/dL (2.2-4.2); Glucose 85 mg/dL (74-106); High Density Lipoprotein 53 mg/dL; Potassium 3.5 mmol/L (3.5-5.1); Protein, Total 8.6 g/dL (6.4-8.2); Sodium Level 139 mmol/L (136-145); Triglycerides 237 mg/dL; Very Low Density Lipoprotein 47 mg/dL (5-40)
[2020-04-05 14:45] LABS: Hepatitis C Antibody Non-Reactive (Nonreactive)
[2020-04-09 15:47] LABS: HIV-1 RNA by PCR, Quant. 50 copies/mL (.); LOG10 HIV-1 RNA 1.699 (.)
[2020-04-09 20:07] LABS: Absolute CD4 Helper 644 /uL (359-1519); Basophils (Absolute) 0.1 x10E3/uL (0.0-0.2); CD4/CD8 Ratio 0.99 (0.92-3.72); Eosinophils 3 % (Not Estab.); Eosinophils (Absolute) 0.2 x10E3/uL (0.0-0.4); Hematocrit 41.1 % (34.0-46.6); Hemoglobin 14.4 g/dL (11.1-15.9); Immature Granulocytes 0 % (Not Estab.); Immature Granulocytes Absolute 0 x10E3/uL (0.0-0.1); Lymphs 28 % (Not Estab.); Lymphs (Absolute) 1.8 x10E3/uL (0.7-3.1); MCH 30.4 pg (26.6-33.0); MCV 87 fL (79-97); Monocytes 9 % (Not Estab.); Monocytes (Absolute) 0.6 x10E3/uL (0.1-0.9); Neutrophils 59 % (Not Estab.); Neutrophils (Absolute) 3.9 x10E3/uL (1.4-7.0); Percent % CD4 Pos. Lymph. 35.8 % (30.8-58.5); Platelets 251 x10E3/uL (150-450); QNTFERON TB Mitogen Value > 10.00 IU/mL (.); QNTFERON TB Nil Value 0.03 IU/mL (.); QNTFERON TB1+ Ag Value 0.03 IU/mL (.); QNTFERON TB2+ Ag Value 0.03 IU/mL (.); RBC Count 4.74 x10E6/uL (3.77-5.28); RDW 13.3 % (11.7-15.4); WBC Count 6.4 x10E3/uL (3.4-10.8)
[2020-04-10 16:37] LABS: QNTIFERON TB Positive Criteria Negative (Negative)
[2020-04-11 04:31] LABS: Rapid Plasmin Reagin (RPR) NONREACTIVE (NONREACTIVE)
== END ==
PROVIDERS: PCP Family Medicine; Referring Provider Nurse Practitioner Family; Visit Provider Nurse Practitioner Family
DX: B20 Human immunodeficiency virus [HIV] disease (principal); K76.9 Liver disease, unspecified; R53.82 Chronic fatigue, unspecified
CPT/HCPCS: 36415; 80053; 80061; 85025; 86360; 86480; 86592; 86803; 87536

== ENCOUNTER → 2020-09-02 12:56 | Outpatient (CLI) | payer MEDICAID, SELFPAY ==
[2020-09-02 13:38] LABS: Absolute Lymphocyte Count 1.81 X10^3/uL (0.83-4.51); Absolute Neutrophil Count 5.1 X10^3/uL (2.0-7.7); Basophil# 0.06 X10^3/uL; Basophil% 0.8 % (0-1); Eosinophils% 2.6 % (0-5); Hematocrit 43.1 % (37-47); Hemoglobin 14.4 g/dL (12.0-15.0); Lymphocyte # 1.81 X10^3/ul (4.0); Lymphocyte % 23.4 % (19-41); Mean Corp Hgb Conc 33.4 g/dL (32-36); Mean Corpuscular Hgb 29.6 pg (27.0-32.0); Mean Corpuscular Volume 88.5 fL (81-99); Mean Platelet Vol. 10.7 fl (6.2-12.0); Monocyte# 0.57 X10^3/uL; Monocyte% 7.4 % (0-10); NRBC Flagged by Analyzer 0 % (0-5); Neutrophil # 5.06 X10^3/uL (2.7-7.7); Neutrophil % 65.4 % (47-70); Platelet Count 239 K/mm3 (150-450); RBC Distribution Width CV 12.9 % (11.6-14.6); Red Blood Count 4.87 M/mm3 (4.2-5.4); White Blood Count 7.7 K/mm3 (4.4-11.0)
[2020-09-02 14:18] LABS: ALB/GLOB Ratio 0.8 RATIO (0.9-2.4); AST(SGOT) 62 U/L (15-37); Alanine Aminotransfer ALT/SGPT 98 U/L (13-56); Albumin, Serum 3.9 g/dL (3.2-5.0); Alkaline Phosphatase 117 U/L (45-117); Anion Gap 5 (5-15); BUN 17 mg/dL (7-18); Chloride 105 mmol/L (98-107); Creatinine, Serum 0.77 mg/dL (0.55-1.02); EST Glomerular Filtration Rate 82 mL/min (>60); Est Glom Filt Rate - Afr Amer 99 mL/min (>60); Globulin 4.8 g/dL (2.2-4.2); Glucose 104 mg/dL (74-106); Potassium 3.3 mmol/L (3.5-5.1); Protein, Total 8.7 g/dL (6.4-8.2); Sodium Level 138 mmol/L (136-145)
[2020-09-02 16:15] LABS: HIV - WCH Preliminary Reactive (Nonreactive)
[2020-09-03 16:08] LABS: Absolute CD4 Helper 730 /uL (359-1519); Basophils (Absolute) 0 x10E3/uL (0.0-0.2); Eosinophils 2 % (Not Estab.); Eosinophils (Absolute) 0.2 x10E3/uL (0.0-0.4); Hemoglobin 14.3 g/dL (11.1-15.9); Immature Granulocytes 0 % (Not Estab.); Lymphs 25 % (Not Estab.); Lymphs (Absolute) 1.9 x10E3/uL (0.7-3.1); MCH 29.7 pg (26.6-33.0); MCV 87 fL (79-97); Monocytes 7 % (Not Estab.); Monocytes (Absolute) 0.6 x10E3/uL (0.1-0.9); Neutrophils 65 % (Not Estab.); Neutrophils (Absolute) 4.9 x10E3/uL (1.4-7.0); Percent % CD4 Pos. Lymph. 38.4 % (30.8-58.5); Platelets 237 x10E3/uL (150-450); RBC Count 4.82 x10E6/uL (3.77-5.28); RDW 13.7 % (11.7-15.4); WBC Count 7.6 x10E3/uL (3.4-10.8)
[2020-09-04 13:24] LABS: Immature Granulocytes Absolute 0 x10E3/uL (0.0-0.1)
== END ==
PROVIDERS: PCP Family Medicine; Visit Provider Internal Medicine Infectious Disease
DX: B20 Human immunodeficiency virus [HIV] disease (principal)
CPT/HCPCS: 36415; 80053; 85025; 86361; 86703

== ENCOUNTER → 2020-09-13 18:06 | Outpatient (CLI) | payer MEDICAID, SELFPAY | PROVIDERS: PCP Family Medicine; Referring Provider Internal Medicine Infectious Disease; Visit Provider Internal Medicine Infectious Disease | DX: B20 Human immunodeficiency virus [HIV] disease (principal) | CPT/HCPCS: 87635; C9803; U0003 ==

== ENCOUNTER 2020-10-26 15:10 | Emergency (ER) | payer MEDICAID, SELFPAY ==
[2020-10-26 15:12] VITALS: BP 160/104; PULSE 89; RESP 21; TEMP 36.3; O2SAT 96; BMI 31.9
--- NOTE | 2020-10-26 15:17 | ED.VIS.GEN ---
History of Present Illness Chief Complaint: Back Informant: Patient Narrative: 60-year-old female presenting with right flank pain. Onset was yesterday. She describes episodes as intermittent and sharp. She feels like it is tight from her right flank and radiating to her right groin. Patient has no urinary symptoms. She does not have hematuria. She denies any history of kidney stones. She states she does not have any nausea with her episodes. She is not been diaphoretic either. Patient also states that during the car ride over to the ER the bumps did not cause her too much distress however she did get two-point at a railroad track where she states she was hunched over in pain with sharp pain rating to her right groin. - Past Medical History (1) HIV Status: Chronic Past Medical History - Allergies and Home Meds Allergies/Adverse Reactions: Allergies ciprofloxacin [From Cipro] Allergy (Verified 10/26/20 15:10) Hives oxycodone Allergy (Verified 10/26/20 15:10) Rash Primary Care Physician: Estee Samayoa MD [STAFF PHYSICIAN] - Venkata Rudolph MD [Primary Care Provider] - Prior records reviewed: Yes Past Medical History: - - Reviewed in problem list Surgical History: noncontributory, - Lives: Alone Smoking Status: Never smoker Alcohol: None Drugs: None - Family History Maternal Family History: Reports: No pertinent history Review of Systems General: Denies: Chills, Fever, Sweats Eyes: Denies: Visual changes - bilaterally, Diplopia ENT: Denies: Rhinorrhea, Sore throat Cardiovascular: Denies: Chest pain, Palpitations Respiratory: Denies: Dyspnea, Cough, Dyspnea on exertion Gastrointestinal: Reports: Abdominal pain. Denies: Nausea, Vomiting, Diarrhea, Constipation Genitourinary: Denies: Dysuria, Hematuria Musculoskeletal: Reports: Back pain - Right flank. Denies: Myalgias, Arthralgias Skin: Denies: Rash, Abscess Neurological: Denies: Headache, Weakness Psych: Denies: Depression, Anxiety Physical Exam Vital Signs/Narrative: Vital Signs Temp Pulse Resp BP Pulse Ox 10/26/20 15:12 97.4 F L 89 21 H 160/104 H 96 Inital Vital Signs reviewed: Yes General: Well nourished, No Acute Distress Head: Normocephalic, Atraumatic Eyes: Perrl, EOMI ENT: Moist mucous membranes, No rhinorrhea Cardiovascular: Regular rate, Regular rhythm Respiratory: No distress, CTA bilaterally Abdomen: Soft, Nondistended Back: - - Tenderness to palpation of the right paraspinal musculature.. Negative for: CVA tenderness, Spinal tenderness Skin: Normal color, No rash Neurological: Alert, Oriented x3 Psychological: Normal affect, Normal Mood Diagnostic/Tx/Re-eval Clinical Impression(s) from Imaging Studies Abdomen/Pelvis CT 10/26/20 15:44 IMPRESSION: 2 mm stone at the right ureterovesicular junction with mild right hydroureteronephrosis. 4 mm nonobstructing right collecting system stone. No left-sided stones. No left-sided hydronephrosis. No bowel obstruction or inflammation. Normal appendix. Fatty liver. Electronically Signed: Johan Gutierrez MD at 16:34 EST Tel , Service support , Laboratory Data 10/26/20 10/26/20 10/26/20 15:20 16:30 16:30 WBC 11.9 H RBC 4.80 Hgb 14.2 Hct 42.0 MCV 87.5 MCH 29.6 MCHC 33.8 RDW Std Deviation 41.3 RDW Coeff of Augusto 13.0 Plt Count 223 MPV 10.4 Immature Gran % (Auto) 0.400 Neut % (Auto) 76.3 H Lymph % (Auto) 13.4 L [place] % (Auto) 8.0 Eos % (Auto) 1.3 Baso % (Auto) 0.6 Absolute Neuts (auto) 9.1 H Absolute Lymphs (auto) 1.60 Nucleated RBC % 0 Sodium 140 Potassium 3.7 Chloride 108 H Carbon Dioxide 25.0 Anion Gap 7 BUN 23 H Creatinine 1.07 H Estim Creat Clear Calc 57.81 Est GFR (MDRD) Af Amer 68 Est GFR (MDRD) Non-Af 56 L BUN/Creatinine Ratio 21.5 H Glucose 103 Calcium 9.0 Urine Color Yellow Urine Clarity Clear Urine pH 5.0 Ur Specific [place] 1.025 Urine Protein Negative Urine Glucose (UA) Normal Urine Ketones Negative Urine Occult Blood 10 H Urine Nitrite Negative Urine Bilirubin Negative Urine Urobilinogen Normal Ur Leukocyte Esterase Negative Urine RBC 0 SEEN Urine WBC 0-5 SEEN Ur Squamous Epith Cells 0 SEEN Calcium Oxalate Crystal RARE Urine Bacteria 0 SEEN Urine Mucus RARE - Medical Decision Making Patient presents with right flank pain. She has no history of kidney stones. She is having difficulty finding position of comfort, flank pain that radiates to the inguinal region. She does not have any CVA tenderness however. Patient's urinalysis does show some blood in her urine. There is no infection present. Patient's BMP shows she is slightly dehydrated. Her CBC is unremarkable. Patient was given Toradol and IV fluids in the ED however she declined stronger analgesia because she has to drive. Patient CT of the abdomen pelvis shows a 2 mm obstructing ureteral stone. Patient will be given a prescription for [place], Zofran, Flomax. Patient has an allergy to hydrocodone which she states caused her to have a rash. She has not tried [place]. I did attempt to give her her first dose here so I could monitor her however again she does not want to drive after taking medication and she cannot get a ride. Patient is given return precautions. Patient stable for discharge at this time. Impression: 1. 2 mm right ureterovesicular junction stone 2. Right hydronephrosis/mild 3. Hematuria ED Disposition - Plan for ED Patient: Instructions: ED Kidney Stone w/ Colic Prescriptions: Tamsulosin HCl [Flomax] 0.4 mg PO DAILY #14 cap Prescription Printed Hydrocodone Bitart/Apap 5-325 [[place] 5MG-325MG] 1 tab PO Q6H PRN PRN 3 Days #12 tab PRN Reason: Pain Prescription Printed Ondansetron [Zofran Odt] 4 mg PO Q8H PRN PRN #14 tab PRN Reason: Nausea Prescription Printed Referrals: Venkata Rudolph MD [Primary Care Provider] - Estee Samayoa MD [STAFF PHYSICIAN] -
--- NOTE | 2020-10-26 15:44 | CT_ITS ---
STUDY: CT ABDOMEN AND PELVIS WITHOUT CONTRAST REASON FOR EXAM: Female, 60 years old. Right flank pain. RADIATION DOSAGE (If Supplied By Facility): CTDIvol = ( 20.69 ) mGy, DLP = ( 1075.08 ) mGycm TECHNIQUE: Transaxial images were obtained from the dome of the diaphragm to the symphysis pubis without oral contrast, and without intravenous contrast. Sagittal and coronal images were reconstructed. Individualized dose optimization techniques were used for this CT. COMPARISON: None. FINDINGS: Evaluation of the abdominal viscera is limited in the absence of intravenous contrast. The visualized lung bases are clear. The visualized portions of the heart and pericardium are within normal limits. There are no calcified gallstones present. The liver is low in density, consistent with fatty infiltration. The spleen is normal in size. The pancreas demonstrates an unremarkable unenhanced appearance. The adrenal glands are within normal limits. There is a 4 mm nonobstructing stone in the collecting system of the right kidney. There is a 2 mm stone at the right ureterovesicular junction with mild right hydroureteronephrosis. There are no left renal or ureteral stones. There is no left hydronephrosis. Normal visualized stomach. There is no bowel obstruction or inflammation. The appendix is visualized and appears normal. The aorta is normal in caliber. There is no abdominal or pelvic free air, free fluid, fluid collection or lymphadenopathy. There are no destructive osseous lesions. CT/Abdomen/Pelvis without Cont IMPRESSION: 2 mm stone at the right ureterovesicular junction with mild right hydroureteronephrosis. 4 mm nonobstructing right collecting system stone. No left-sided stones. No left-sided hydronephrosis. No bowel obstruction or inflammation. Normal appendix. Fatty liver. Electronically Signed: Johan Gutierrez MD at 16:34 EST Tel , Service support ,
[2020-10-26] MEDS: Ketorolac 15 MG/ML Vial IV (15:51)
[2020-10-26 15:53] VITALS: BP 170/93; PULSE 83; RESP 18; O2SAT 98
[2020-10-26 16:05] LABS: Bacteria 0 SEEN /hpf (None Seen); Red Blood Cells-Urine 0 SEEN /hpf (0-5); Squamous Epithelial Cells - UA 0 SEEN /hpf (5-10)
[2020-10-26 16:06] LABS: Color, Urine Yellow (Yellow); Glucose, Dipstick Normal (Normal); Ketone-Dipstick Negative (Negative); Leukocyte Esterase-Dipstick Negative /ul (Negative); Nitrite-Dipstick Negative (Negative); Occult Blood-Urine 10 /ul (Negative); Protein-Dipstick Negative (Negative); Specific Gravity, Urine 1.025 (1.002-1.030); Urine Bilirubin Dipstick Negative (Negative); Urine Clarity Clear (Clear); Urine Urobilinogen Normal (Normal)
[2020-10-26 16:21] LABS: Calcium Oxalate Crystals Ur RARE /hpf (<or=2+); Mucous, Urine RARE /hpf (<or=2+); White Blood Cells 0-5 SEEN /hpf (0-5)
[2020-10-26 16:40] LABS: Absolute Neutrophil Count 9.1 X10^3/uL (2.0-7.7); Basophil# 0.07 X10^3/uL; Basophil% 0.6 % (0-1); Eosinophil# 0.15 X10^3/uL; Eosinophils% 1.3 % (0-5); Hemoglobin 14.2 g/dL (12.0-15.0); Lymphocyte % 13.4 % (19-41); Mean Corp Hgb Conc 33.8 g/dL (32-36); Mean Corpuscular Hgb 29.6 pg (27.0-32.0); Mean Corpuscular Volume 87.5 fL (81-99); Mean Platelet Vol. 10.4 fl (6.2-12.0); Monocyte# 0.95 X10^3/uL; NRBC Flagged by Analyzer 0 % (0-5); Neutrophil % 76.3 % (47-70); Platelet Count 223 K/mm3 (150-450); RBC Distribution Width SD 41.3 fl (35.1-43.9); White Blood Count 11.9 K/mm3 (4.4-11.0)
[2020-10-26 17:08] LABS: Anion Gap 7 (5-15); BUN 23 mg/dL (7-18); BUN/Creat Ratio 21.5 RATIO (10-20); Chloride 108 mmol/L (98-107); Creatinine, Serum 1.07 mg/dL (0.55-1.02); EST Glomerular Filtration Rate 56 mL/min (>60); Est Glom Filt Rate - Afr Amer 68 mL/min (>60); Estimated Creatinine Clearance 57.81 ml/min; Glucose 103 mg/dL (74-106); Potassium 3.7 mmol/L (3.5-5.1); Sodium Level 140 mmol/L (136-145)
== END 2020-10-26 17:52 | disposition home or self-care (01) ==
LOC: ED 15:39
PROVIDERS: Emergency Provider Student in an Organized Health Care Education/Training Program; PCP Family Medicine
DX: N13.2 Hydronephrosis with renal and ureteral calculous obstruction (principal); R31.9 Hematuria, unspecified; K76.0 Fatty (change of) liver, not elsewhere classified; Z88.1 Allergy status to other antibiotic agents; Z88.5 Allergy status to narcotic agent; B20 Human immunodeficiency virus [HIV] disease
CPT/HCPCS: 74176; 80048; 81001; 85025; 96361; 96374; 99284; J7040; A4216

== ENCOUNTER → 2021-02-26 07:25 | Outpatient (CLI) | payer MEDICAID, SELFPAY ==
[2021-02-26 08:05] LABS: Absolute Lymphocyte Count 1.82 X10^3/uL (0.83-4.51); Absolute Neutrophil Count 3.6 X10^3/uL (2.0-7.7); Basophil# 0.05 X10^3/uL; Basophil% 0.8 % (0-1); Eosinophil# 0.19 X10^3/uL; Eosinophils% 3.1 % (0-5); Hematocrit 45.6 % (37-47); Hemoglobin 14.9 g/dL (12.0-15.0); Lymphocyte # 1.82 X10^3/ul (0.83-4.51); Lymphocyte % 29.5 % (19-41); Mean Corp Hgb Conc 32.7 g/dL (32-36); Mean Corpuscular Hgb 29.3 pg (27.0-32.0); Mean Corpuscular Volume 89.6 fL (81-99); Mean Platelet Vol. 10.6 fl (6.2-12.0); Monocyte# 0.48 X10^3/uL; Monocyte% 7.8 % (0-10); NRBC Flagged by Analyzer 0 % (0-5); Neutrophil # 3.61 X10^3/uL (2.7-7.7); Neutrophil % 58.5 % (47-70); Platelet Count 252 K/mm3 (150-450); RBC Distribution Width SD 42.7 fl (35.1-43.9); Red Blood Count 5.09 M/mm3 (4.2-5.4); White Blood Count 6.2 K/mm3 (4.4-11.0)
[2021-02-26 08:33] LABS: ALB/GLOB Ratio 0.8 RATIO (0.9-2.4); AST(SGOT) 37 U/L (15-37); Alanine Aminotransfer ALT/SGPT 72 U/L (13-56); Albumin, Serum 3.6 g/dL (3.2-5.0); Alkaline Phosphatase 109 U/L (45-117); Anion Gap 5 (5-15); BUN 14 mg/dL (7-18); BUN/Creat Ratio 18.5 RATIO (10-20); Calcium,Total 8.9 mg/dL (8.5-10.1); Chloride 106 mmol/L (98-107); Cholesterol 217 mg/dL (200); Creatinine, Serum 0.76 mg/dL (0.55-1.02); EST Glomerular Filtration Rate 83 mL/min (>60); Est Glom Filt Rate - Afr Amer 101 mL/min (>60); Globulin 4.7 g/dL (2.2-4.2); Glucose 113 mg/dL (74-106); High Density Lipoprotein 69 mg/dL; Potassium 3.3 mmol/L (3.5-5.1); Protein, Total 8.3 g/dL (6.4-8.2); Sodium Level 140 mmol/L (136-145); Triglycerides 201 mg/dL; Very Low Density Lipoprotein 40 mg/dL (5-40)
[2021-02-26 09:07] LABS: Hepatitis B Surface Antigen Non-Reactive (Nonreactive); Hepatitis C Antibody Non-Reactive (Nonreactive)
[2021-02-28 08:32] LABS: HIV-1 RNA by PCR, Quant. 50 copies/mL (.); LOG10 HIV-1 RNA 1.699 (.)
[2021-03-01 04:07] LABS: Absolute CD4 Helper 612 /uL (359-1519); Basophils (Absolute) 0.1 x10E3/uL (0.0-0.2); Eosinophils 3 % (Not Estab.); Eosinophils (Absolute) 0.2 x10E3/uL (0.0-0.4); Hematocrit 37.3 % (34.0-46.6); Hemoglobin 12.7 g/dL (11.1-15.9); Immature Granulocytes 0 % (Not Estab.); Immature Granulocytes Absolute 0 x10E3/uL (0.0-0.1); Lymphs 29 % (Not Estab.); Lymphs (Absolute) 1.8 x10E3/uL (0.7-3.1); MCH 29.5 pg (26.6-33.0); MCV 87 fL (79-97); Monocytes 9 % (Not Estab.); Monocytes (Absolute) 0.6 x10E3/uL (0.1-0.9); Neutrophils 58 % (Not Estab.); Neutrophils (Absolute) 3.7 x10E3/uL (1.4-7.0); Platelets 270 x10E3/uL (150-450); QNTFERON TB Mitogen Value > 10.00 IU/mL (.); QNTFERON TB Nil Value 0 IU/mL (.); QNTFERON TB1+ Ag Value 0 IU/mL (.); QNTFERON TB2+ Ag Value 0 IU/mL (.); RBC Count 4.31 x10E6/uL (3.77-5.28); RDW 13.3 % (11.7-15.4); WBC Count 6.4 x10E3/uL (3.4-10.8)
[2021-03-01 09:15] LABS: QNTIFERON TB Positive Criteria Negative (Negative)
== END ==
PROVIDERS: PCP Family Medicine; Referring Provider Internal Medicine Infectious Disease; Visit Provider Internal Medicine Infectious Disease
DX: K76.9 Liver disease, unspecified (principal); B20 Human immunodeficiency virus [HIV] disease
CPT/HCPCS: 36415; 80053; 80061; 85025; 86361; 86480; 86803; 87340; 87536

== ENCOUNTER → 2021-09-01 16:02 | Outpatient (CLI) | payer MEDICAID, SELFPAY ==
[2021-09-01 16:40] LABS: Absolute Lymphocyte Count 2.36 X10^3/uL (0.83-4.51); Absolute Neutrophil Count 4.1 X10^3/uL (2.0-7.7); Basophil# 0.05 X10^3/uL; Basophil% 0.7 % (0-1); Eosinophil# 0.19 X10^3/uL; Eosinophils% 2.6 % (0-5); Hematocrit 39.9 % (37-47); Hemoglobin 13.2 g/dL (12.0-15.0); Lymphocyte # 2.36 X10^3/ul (0.83-4.51); Lymphocyte % 32.2 % (19-41); Mean Corp Hgb Conc 33.1 g/dL (32-36); Mean Corpuscular Hgb 29.9 pg (27.0-32.0); Mean Corpuscular Volume 90.3 fL (81-99); Mean Platelet Vol. 10.6 fl (6.2-12.0); Monocyte# 0.59 X10^3/uL; NRBC Flagged by Analyzer 0 % (0-5); Neutrophil # 4.13 X10^3/uL (2.7-7.7); Neutrophil % 56.2 % (47-70); Platelet Count 229 K/mm3 (150-450); RBC Distribution Width SD 42.7 fl (35.1-43.9); Red Blood Count 4.42 M/mm3 (4.2-5.4); White Blood Count 7.3 K/mm3 (4.4-11.0)
[2021-09-01 16:57] LABS: Amphetamine Urine VISTA NEGATIVE (<1000 ng/mL); Barbiturate Urine VISTA NEGATIVE (< 200 ng/mL); Benzodiazepine Urine VISTA NEGATIVE (< 200 ng/mL); Cocaine Urine VISTA NEGATIVE (< 300 ng/mL); Ecstacy Urine VISTA NEGATIVE (< 500 ng/mL); Methadone Urine VISTA NEGATIVE (< 300 ng/mL); PCP Urine VISTA NEGATIVE (< 25 ng/mL); THC Urine VISTA NEGATIVE (< 50 ng/mL); Vista UDS pH Range 4
[2021-09-01 17:03] LABS: Hemoglobin A1c 5.6 % (3.8-5.6)
[2021-09-01 17:32] LABS: ALB/GLOB Ratio 0.8 RATIO (0.9-2.4); AST(SGOT) 36 U/L (15-37); Alanine Aminotransfer ALT/SGPT 42 U/L (13-56); Albumin, Serum 3.8 g/dL (3.2-5.0); Alkaline Phosphatase 84 U/L (45-117); Anion Gap 6 (5-15); BUN 21 mg/dL (7-18); Bilirubin, Direct 0.28 mg/dL (0.00-0.30); Calcium,Total 9.5 mg/dL (8.5-10.1); Chloride 104 mmol/L (98-107); Creatinine, Serum 1.05 mg/dL (0.55-1.02); EST Glomerular Filtration Rate 57 mL/min (>60); Est Glom Filt Rate - Afr Amer 69 mL/min (>60); Globulin 4.9 g/dL (2.2-4.2); Glucose 95 mg/dL (74-106); Protein, Total 8.7 g/dL (6.4-8.2); Sodium Level 140 mmol/L (136-145); Thyroid Stim Hormone (TSH) 1.47 uIU/mL (0.358-3.74)
[2021-09-03 14:10] LABS: Absolute CD4 Helper 784 /uL (359-1519); Basophils (Absolute) 0.1 x10E3/uL (0.0-0.2); Eosinophils 3 % (Not Estab.); Eosinophils (Absolute) 0.2 x10E3/uL (0.0-0.4); Hematocrit 39.8 % (34.0-46.6); Hemoglobin 13.6 g/dL (11.1-15.9); Immature Granulocytes 0 % (Not Estab.); Lymphs 30 % (Not Estab.); MCH 30.6 pg (26.6-33.0); MCHC 34.2 g/dL (31.5-35.7); MCV 89 fL (79-97); Monocytes 10 % (Not Estab.); Monocytes (Absolute) 0.7 x10E3/uL (0.1-0.9); Neutrophils 56 % (Not Estab.); Neutrophils (Absolute) 3.9 x10E3/uL (1.4-7.0); Percent % CD4 Pos. Lymph. 39.2 % (30.8-58.5); Platelets 232 x10E3/uL (150-450); RBC Count 4.45 x10E6/uL (3.77-5.28); RDW 13.1 % (11.7-15.4); WBC Count 6.9 x10E3/uL (3.4-10.8)
[2021-09-03 20:48] LABS: Immature Granulocytes Absolute 0 x10E3/uL (0.0-0.1)
[2021-09-04 08:42] LABS: HIV-1 RNA by PCR, Quant. < 20 copies/mL (.)
== END ==
PROVIDERS: PCP Family Medicine; Visit Provider Internal Medicine Infectious Disease
DX: G62.9 Polyneuropathy, unspecified (principal); E78.5 Hyperlipidemia, unspecified; B20 Human immunodeficiency virus [HIV] disease; E11.40 Type 2 diabetes mellitus with diabetic neuropathy, unspecified; R53.82 Chronic fatigue, unspecified; E11.8 Type 2 diabetes mellitus with unspecified complications
CPT/HCPCS: 36415; 80053; 80307; 82248; 83036; 84443; 85025; 86361; 87536

== ENCOUNTER → 2021-09-25 12:28 | Outpatient (CLI) | payer MEDICAID, SELFPAY ==
[2021-09-25 12:56] LABS: Protein, Urine (Random) 11.2 mg/dL (<11.9)
[2021-09-30 11:08] LABS: Immunoglobulin A 365 mg/dL (87-352); Immunoglobulin G 1861 mg/dL (586-1602); Immunoglobulin M 133 mg/dL (26-217); PROEL- A/G Ratio 0.9 (0.7-1.7); PROEL- Albumin 3.7 g/dL (2.9-4.4); PROEL- Alpha-1 Globulin 0.3 g/dL (0.0-0.4); PROEL- Alpha-2 Globulin 0.9 g/dL (0.4-1.0); PROEL- Beta Globulin 1.3 g/dL (0.7-1.3); PROEL- Gamma Globulin 1.9 g/dL (0.4-1.8); PROEL- Globulin, Total 4.3 g/dL (2.2-3.9)
[2021-09-30 13:20] LABS: Immunoglobulin E 40 IU/mL (6-495)
== END ==
PROVIDERS: PCP Family Medicine; Referring Provider Internal Medicine Infectious Disease; Visit Provider Internal Medicine Infectious Disease
DX: R89.4 Abnormal immunological findings in specimens from other organs, systems and tissues (principal); B20 Human immunodeficiency virus [HIV] disease
CPT/HCPCS: 36415; 82784; 82785; 84156; 84165

== ENCOUNTER → 2022-03-02 | Outpatient (CLI) | payer MEDICAID, SELFPAY ==
[2022-03-02 13:30] LABS: Absolute Lymphocyte Count 1.98 X10^3/uL (0.83-4.51); Absolute Neutrophil Count 6.5 X10^3/uL (2.0-7.7); Basophil# 0.03 X10^3/uL; Basophil% 0.3 % (0-1); Eosinophil# 0.14 X10^3/uL; Eosinophils% 1.5 % (0-5); Hematocrit 39.3 % (37-47); Hemoglobin 13.3 g/dL (12.0-15.0); Lymphocyte # 1.98 X10^3/ul (0.83-4.51); Mean Corp Hgb Conc 33.8 g/dL (32-36); Mean Corpuscular Hgb 30.1 pg (27.0-32.0); Mean Corpuscular Volume 88.9 fL (81-99); Mean Platelet Vol. 10.1 fl (6.2-12.0); Monocyte# 0.74 X10^3/uL; Monocyte% 7.9 % (0-10); NRBC Flagged by Analyzer 0 % (0-5); Platelet Count 261 K/mm3 (150-450); RBC Distribution Width CV 12.5 % (11.6-14.6); RBC Distribution Width SD 40.9 fl (35.1-43.9); Red Blood Count 4.42 M/mm3 (4.2-5.4); White Blood Count 9.4 K/mm3 (4.4-11.0)
[2022-03-02 13:56] LABS: AST(SGOT) 33 U/L (15-37); Alanine Aminotransfer ALT/SGPT 51 U/L (13-56); Albumin, Serum 3.7 g/dL (3.2-5.0); Alkaline Phosphatase 91 U/L (45-117); Bilirubin, Direct 0.23 mg/dL (0.00-0.30); Globulin 4.8 g/dL (2.2-4.2); Protein, Total 8.5 g/dL (6.4-8.2)
[2022-03-05 09:32] LABS: HIV-1 RNA by PCR, Quant. < 20 copies/mL (.)
== END | disposition home or self-care (01) ==
LOC: LAB 13:10
PROVIDERS: PCP Family Medicine; Referring Provider Internal Medicine Infectious Disease; Visit Provider Internal Medicine Infectious Disease
DX: B20 Human immunodeficiency virus [HIV] disease (principal)
CPT/HCPCS: 36415; 80076; 85025; 87536

== ENCOUNTER 2023-10-08 11:19 | Outpatient (RCR) | payer OTHER, MEDICAID, SELFPAY ==
--- NOTE | 2023-10-14 14:47 | HP.OTFCE_ITS ---
Task Lift Floor (Occasional 1-33% of Day): max weight 35# Floor (Frequent 34-66% of Day): max weight 17.5# Floor (Constant 67-100% of Day): max weight 7.3# Floor PDL: Light Knee (Occasional 1-33% of Day): max weight 35# Knee (Frequent 34-66% of Day): max weight 17.5# Knee (Constant 67-100% of Day): max weight 7.3# Knee PDL: Light Waist (Occasional 1-33% of Day): max weight 25# Waist (Frequent 34-66% of Day): max weight 12.5# Waist (Constant 67-100% of Day): max weight 5.3# Waist PDL: Light Shoulder (Occasional 1-33% of Day): max weight 15# Shoulder (Frequent 34-66% of Day): max weight 7.5# Shoulder (Constant 67-100% of Day): max weight 3.15# Shoulder PDL: Sedentary Overhead (Occasional 1-33% of Day): max weight 10# Overhead (Frequent 34-66% of Day): max weight 5# Overhead (Constant 67-100% of Day): max weight 2.1# Overhead PDL: Sedentary Comments: no increase in pain with lifting tasks and using good body mechanics Work Activity/Posture Bending: Frequent Ability (34-66% of day) Squatting: Frequent Ability (34-66% of day) Kneeling: Frequent Ability (34-66% of day) Reaching out: Constant Ability (67-100% of day) Reaching up: Constant Ability (67-100% of day) Sitting: Constant Ability (67-100% of day) Walking: Constant Ability (67-100% of day) Standing: Constant Ability (67-100% of day) Reference Reference: Duration Sedentary Sedentary Light Light Light Medium Medium Medium Heavy Very Heavy Heavy Occasional (0-33% of day) Frequent (34-66% of day) Constant (67-100% of day) 10 # Negligible Negligible 15 # 8 # Negligible 20 # 10# Negli. 35 # 18 # 7 # 50 # 25 # 10 # 75 # 100 # >100 # 38 # 50 # >50 # 15 # 20 # >20 # Patient Information Height: 1.6 m Weight:: 91.138 kg Hand Dominance: right Medical History Medical History Including Restrictions: Patient fell 11/27/21 on ice in the parking lot at work, resulting in right shoulder injury. Patient then saw Debi Butler (orthopedic practictioner at ). Patient started physical therapy at that time. Later that year the completed an MRI which indicated slight rotator cuff tear and bursitis and biceps tendonitis. 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 By the end of 2021, patient's doctor recommended a second opinion because patient wasn't getting better. The second doctor evaluated her and recommended surgery. Patient had rotator cuff surgery Nov 132022 and then resumed physical therapy. Patient has been receiving workman's comp since surgery, which ended Oct 012022. Patient uses biofreeze and still completes the home exercise program provided by PT. She will ice it sometimes if the pain is bad and will take [id number] pain reliever as needed. 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 Patient's job required standing all day aside from breaks and lunch. Patient's job duties included: mopping, pushing laundry baskets, trash baskets, and dusting. Lifting max was 25-30 pounds (laundry bags). 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 Behavioral Behavioral: Patient alert and cooperative throughout course of evaluation. She was a good historian of her employment and medical history. ADLS ADLS: Patient lives independently. Patient has two flights of steps to get to her apartment. There is a handrail present. Independently living in her apartment without using any adaptive equipment or DME. Patient is indep with IADL tasks as well (laundry, cooking, driving, grocery shopping, etc). Physical Examination Physical Examination: Patient well appearing, ambulated around rehab department without difficulty, transferred to/from chairs without difficulty, demonstrating intact functional range of motion and use of upper and lower body. ROM: Range of motion intact Strength: Right: shoulder flexion 19/ extension 22.5 elbow flexion 30.1/ extension 19.7 wrist flexion 18.4/ extension 20.2 hip flexion 21.8 knee flexion 23.9/ extension 25.6 Left: shoulder flexion 22.2/ extension 19.7 elbow flexion 23.5/ extension 17.1 wrist flexion 19.9/ extension 18.7 hip flexion 23.3 knee flexion 25.6/ extension 31.6 Right Biofuels Plant Manager Strength Average: 42.66 Right [employer]fuels Plant Manager Strength Percentile: 53rd percentile Left [employer]fuels Plant Manager Strength Average: 46.00 Left [employer]fuels Plant Manager Strength Percentile: 47th percentile Right Lateral Pinch Average: 10.00 Right Lateral Pinch Percentile: 25th percentile Left Lateral Pinch Average: 8.00 Left Lateral Pinch Percentile: 10th percentile Right Tripod Pinch Average: 8.00 Right Tripod Pinch Percentile: 25th percentile Left Tripod Pinch Average: 8.33 Left Tripod Pinch Percentile: 25th percentile Comments: Patient demonstrating functional sld inclusion teacher and pinch strength. Sensation: no sensation concerns Fine Motor: no concerns reported, functional fine motor skills observed and reported Balance: no concerns Non Material Handling Activities Bending: completed 10 reps slow and then 10 reps faster without difficulty, loss of balance, or pain Squatting: able to squat indep multiple reps without loss of balance or pain Kneeling: easier time kneeling on the right completed multiple reps bilaterally without break Reaching out/up: completed reaching out and up 10x slow then 10x faster without difficulty and no increase in pain Walking: walked 15 min without difficulty Standing: stood prolonged period no difficulty Sitting: sat prolonged no difficulty Climbing Stairs: completed flight of stairs independently using reciprocal pattern Dynamic Occasional Lifting Capacity Floor Lift: max weight 35# Knee Lift: max weight 35# Waist Lift: max weight 25# Shoulder Lift: max weight 15# Overhead Lift: max weight 10# Carrying: max weight 25# Comments: no increase of pain reported with lifting tasks. Good lifting mechanics noted.
--- NOTE | 2023-10-14 14:47 | HP.OTFCE.D ---
FCE D/C Summary Discharge text: KAREN DAYNA GRIFFITHS was seen for a one time visit for an FCE on 10/08/23 and is discharged.
== END 2023-10-08 19:00 | disposition home or self-care (01) ==
LOC: OT 11:19
PROVIDERS: PCP Family Medicine
DX: M75.41 Impingement syndrome of right shoulder (principal); M75.81 Other shoulder lesions, right shoulder; M75.21 Bicipital tendinitis, right shoulder; S46.011S Strain of muscle(s) and tendon(s) of the rotator cuff of right shoulder, sequela
CPT/HCPCS: 97750